=== PATIENT | male | born 1970 | race Two or more races ===

== ENCOUNTER 2016-12-20 14:08 | Emergency (ER) | payer OTHER ==
[2016-12-20 14:15] VITALS: BP 107/66
[2016-12-20] MEDS ORDERED: Rabies Immune Globulin 10 ML* 150 UNIT/ML VIAL IM ONE (14:19)
[2016-12-20] MEDS ORDERED: Rabies Vaccine, PCEC INJ* 1 ml IM ONE (14:19)
[2016-12-20] MEDS ORDERED: Tetan/Diph/Pertus SYR(Tdap)* 0.5 ML SYR(BOOSTRIX) use SYR IM ONE (14:31)
[2016-12-20] MEDS ORDERED: Rabies Immune Globulin 2 ML* 150 UNITS/ML VIAL IM ONE (14:33)
--- NOTE | 2016-12-20 14:39 | UC ---
Bite Injury/Animal HPI - HPI Summary HPI Summary: Had bat in house yesterday while sleeping, here for rabies prophylaxis per [facility]. Not sure when last tetanus shot was, thinks it has been a long time. No known bite wound. - History of Current Complaint Chief Complaint: UCGeneralIllness Stated Complaint: RABIES VACCINE Time Seen by Provider: 12/20/16 14:17 Hx Obtained From: Patient Severity Currently: None Onset/Duration: Sudden Onset Type of Bite: Wild Animal Has Animal Been Immunized?: No Aggravating Factor(s): Nothing Alleviating Factor(s): Nothing Associated Signs And Symptoms: Positive: Negative Hx of Bite: Unprovoked Animal Available for Observation: No Animal Control Notified: Yes - Allergies/Home Medications Allergies/Adverse Reactions: Allergies Allergy/AdvReac Type Severity Reaction Status Date / Time Codeine AdvReac Severe migraine Verified 12/20/16 14:15 PMH/Surg Hx/FS Hx/Imm Hx Previously Healthy: Yes - Surgical History Surgical History: None Surgery Procedure, Year, and Place: R SHOULDER SURGERY 1989 ,2004 LEFT SHOULDER - Family History Known Family History: Negative: Blood Disorder - Social History Lives: With Family Alcohol Use: Rare Substance Use Type: None Smoking Status (MU): Never Smoked Tobacco Review of Systems Constitutional: Negative Skin: Negative Eyes: Negative ENT: Negative Respiratory: Negative Cardiovascular: Negative Gastrointestinal: Negative Genitourinary: Negative Motor: Negative Neurovascular: Negative Musculoskeletal: Negative Neurological: Negative Psychological: Negative All Other Systems Reviewed And Are Negative: Yes Physical Exam Triage Information Reviewed: Yes Appearance: Well-Appearing, No Pain Distress, Well-Nourished Vital Signs: Initial Vital Signs Temp 97.6 F 12/20/16 14:10 Pulse 75 12/20/16 14:10 Resp 16 12/20/16 14:10 BP 107/66 12/20/16 14:10 Pulse Ox 100 12/20/16 14:10 Vital Signs Reviewed: Yes Eye Exam: Normal Eyes: Positive: Conjunctiva Clear ENT Exam: Normal ENT: Positive: Normal ENT inspection, Hearing grossly normal, Pharynx normal, TMs normal Dental Exam: Normal Respiratory Exam: Normal Respiratory: Positive: Chest non-tender, Lungs clear, Normal breath sounds, No respiratory distress, No accessory muscle use Cardiovascular Exam: Normal Cardiovascular: Positive: RRR, No Murmur Musculoskeletal Exam: Normal Musculoskeletal: Positive: Strength Intact, ROM Intact, No Edema Neurological Exam: Normal Neurological: Positive: Alert Psychological Exam: Normal Skin Exam: Normal Bite Injury Course/Dx - Differential Dx/Diagnosis Provider Diagnoses: rabies exposure. rabies prophylaxis Discharge - Discharge Plan Condition: Stable Disposition: HOME Patient Education Materials: Rabies Vaccine (ED), Rabies Immune Globulin (By injection) Referrals: Leobardo Vasquez MD [Primary Care Provider] - Additional Instructions: Please follow up with the [facility] for further rabies immunization.
== END 2016-12-20 15:38 | disposition home or self-care (01) ==
LOC: UCEAST 14:08
DX: Z20.3 Contact with and (suspected) exposure to rabies (principal); Z23 Encounter for immunization; Z88.5 Allergy status to narcotic agent
CPT/HCPCS: 90375; 90471; 90472; 90675; 90715; 96372; 99211; G0463

== ENCOUNTER 2016-12-21 15:21 | Emergency (ER) | payer OTHER ==
[2016-12-21 18:13] LABS: Hematocrit 41 % (42-52); Hemoglobin 14.2 g/dl (14.0-18.0); Mean Corpuscular HGB Conc 35 g/dl (31-36); Mean Corpuscular Hemoglobin 31 pg (27-31); Mean Corpuscular Volume 88 fL (80-94); Mean Platelet Volume 7 um3 (7.4-10.4); Red Blood Count 4.65 10^6/ul (4.0-5.4); Red Cell Distribution Width 13 % (10.5-15); White Blood Count 5.6 10^3/ul (3.5-10.8)
[2016-12-21 18:23] LABS: Albumin 4.6 g/dL (3.2-5.2); C Reactive Protein 1.04 mg/L (< 5.00); Calcium 9.5 mg/dL (8.6-10.3); EGFR African American 103.5 (>60); EGFR Non-African American 80.4 (>60); Globulin 2.3 g/dL (2-4); Total Bilirubin 0.6 mg/dL (0.2-1.0); Total Protein 6.9 g/dL (6.4-8.9)
[2016-12-21] MEDS ORDERED: NS 0.9% 1000 ML* 1,000 ML IV ONE (19:05)
[2016-12-21] MEDS ORDERED: Ondansetron INJ* 2 MG/ML VIAL IV ONE (19:05)
[2016-12-21] MEDS ORDERED: Morphine INJ* 4 MG/ML 1 ML SYRINGE IV ONE (19:05)
--- NOTE | 2016-12-21 20:42 | RAD ---
HISTORY: Right upper quadrant pain. COMPARISONS: CT abdomen pelvis dated April 04, 2010 TECHNIQUE: Multiple transverse and longitudinal ultrasound images were obtained of the right upper quadrant. FINDINGS: LIVER: The liver is normal in dimensions and echogenicity. Normal hepatic and portal venous blood flow is duplicated with color flow imaging. There is no gross intrahepatic biliary duct dilatation. GALLBLADDER AND EXTRAHEPATIC BILIARY DUCT: The gallbladder is normal in appearance without intraluminal stones or other soft tissue masses. There is no pericholecystic fluid or gallbladder wall thickening. The common bile duct measures a maximum diameter of 2 mm diameter. PANCREAS: The portions of the pancreas not obscured by bowel gas are normal in appearance. RIGHT KIDNEY: The right kidney is normal in size, morphology and echogenicity. AORTA AND IVC: The visualized portions are normal in appearance and not pathologically dilated. IMPRESSION: Normal ultrasound of the right upper quadrant.
[2016-12-21] MEDS ORDERED: Al Hydrox/Mg Hydrox/Simet LIQ* 30 ML UDC PO ONE (21:08)
[2016-12-21] MEDS ORDERED: Lidocaine 2% VISCOUS* 15 ML UDC PO ONE (21:08)
[2016-12-21 21:16] LABS: Urine Bilirubin Negative (Negative); Urine Glucose Negative (Negative); Urine Nitrite Negative (Negative)
--- NOTE | 2016-12-21 21:53 | RAD ---
INDICATION: Right-sided costal pleuritic chest pain COMPARISON: None TECHNIQUE: PA and lateral views of the chest were obtained. FINDINGS: The heart and mediastinum are normal in size and contour. The lungs are grossly clear. There is no evidence of large pleural effusion. Visualized bones are normal for the patient's age. There is no radiographic evidence of free air beneath the diaphragm IMPRESSION: No radiographic evidence of acute cardiopulmonary disease.
[2016-12-21 22:43] VITALS: BP 133/60
--- NOTE | 2016-12-25 10:19 | ED ---
Luna Dickens Thomas, scribed for Jacky Gil MD on 12/21/16 at 1908 . Abdominal Pain/Male - HPI Summary HPI Summary: The pt is a 46 y/o M presenting to the ED c/o RUQ abd pain that began three days ago. The pain is constant and described as 6/10 in severity. The pain is worsened significantly with deep breaths. The pt denies that the pain worsens when he eats food. Pt denies SOB, dizziness, lightheadedness, and loose stool. PMHx: hypothyroidism, chronic back pain, currently under treatment for rabies ( no reported bite). SHx: no smoking, no alcohol use in 12 years. - History of Current Complaint Chief Complaint: EDAbdPain Stated Complaint: RT SIDE RIB PAIN Time Seen by Provider: 12/21/16 17:31 Hx Obtained From: Patient Onset/Duration: Lasting Days - 3 days, Still Present Timing: Constant Pain Intensity: 6 Pain Scale Used: 0-10 Numeric Location: Discrete At: RUQ Aggravating Factor(s): Deep Breaths Alleviating Factor(s): Other: - NEG: NOT aggravated by food Associated Signs And Symptoms: Positive: Other - NEG: SOB, dizziness, lightheadedness, loose stool - Allergies/Home Medications Allergies/Adverse Reactions: Allergies Allergy/AdvReac Type Severity Reaction Status Date / Time Codeine AdvReac Severe migraine Verified 12/20/16 14:15 PMH/Surg Hx/FS Hx/Imm Hx Previously Healthy: No Endocrine/Hematology History: Reports: Other Endocrine/Hematological Disorders - Hx hypothyroidism Cardiovascular History: Denies: Hx Pacemaker/ICD Musculoskeletal History: Reports: Other Musculoskeletal History - Hx chronic back pain Sensory History: Denies: Hx Hearing Aid Psychiatric History: Denies: Hx Panic Disorder - Surgical History Surgery Procedure, Year, and Place: R SHOULDER SURGERY 1989 ,2004 LEFT SHOULDER - Immunization History Date of Tetanus Vaccine: up to date Date of Influenza Vaccine: up to date Infectious Disease History: Yes - currently under treatment fo rabies Infectious Disease History: Denies: Traveled Outside the [place] in Last 30 Days - Family History Known Family History: Negative: Blood Disorder - Social History Alcohol Use: None Substance Use Type: Reports: None Smoking Status (MU): Former Smoker Review of Systems Constitutional: Negative Negative: Fever, Chills Eyes: Negative Negative: Erythema - eyes ENT: Negative Negative: Sore Throat Cardiovascular: Negative Negative: Chest Pain Respiratory: Negative Negative: Shortness Of Breath Positive: Abdominal Pain - RUQ abd pain that began 3 days ago, worsened with deep breaths, Other - NEG: loose stool. Negative: Vomiting, Nausea Genitourinary: Negative Negative: dysuria, hematuria Musculoskeletal: Negative Negative: Myalgia, Edema - leg Skin: Negative Negative: Rash Neurological: Negative, Other - NEG: dizziness, lightheadedness Psychological: Normal All Other Systems Reviewed And Are Negative: Yes Physical Exam - Summary Physical Exam Summary: Constitutional: Well-developed, Well-nourished, Alert. (-) Distressed Skin: Warm, Dry HENT: Normocephalic; Atraumatic Eyes: Conjunctiva normal Neck: Musculoskeletal ROM normal neck. (-) JVD, (-) Stridor, (-) Tracheal deviation Cardio: Rhythm regular, rate normal, Heart sounds normal; Intact distal pulses; The pedal pulses are 2+ and symmetric. Radial pulses are 2+ and symmetric. (-) Murmur Pulmonary/Chest wall: Effort normal. (-) Respiratory distress, (-) Wheezes, (-) Rales Abd: RUQ and epigastric tenderness. Soft, (-) Distension, (-) Guarding, (-) Rebound Musculoskeletal: (-) Edema Lymph: (-) Cervical adenopathy Neuro: Alert, Oriented x3 Psych: Mood and affect Normal Triage Information Reviewed: Yes Vital Signs On Initial Exam: Initial Vitals Temp Pulse Resp BP Pulse Ox 97.9 F 80 20 119/85 100 12/21/16 15:28 12/21/16 15:28 12/21/16 15:28 12/21/16 15:28 12/21/16 15:28 Vital Signs Reviewed: Yes - [place] Coma Scale Coma Scale Total: 15 Diagnostics - Vital Signs Vital Signs Temp Pulse Resp BP Pulse Ox 12/21/16 17:34 97.4 F 66 16 113/74 100 12/21/16 17:13 96.9 F 84 20 121/73 100 12/21/16 15:28 97.9 F 80 20 119/85 100 - Laboratory Lab Results: Lab Results 12/21/16 12/21/16 12/21/16 Range/Units 18:00 18:00 18:00 WBC 5.6 (3.5-10.8) 10^3/ul RBC 4.65 (4.0-5.4) 10^6/ul Hgb 14.2 (14.0-18.0) g/dl Hct 41 L (42-52) % MCV 88 (80-94) fL MCH 31 (27-31) pg MCHC 35 (31-36) g/dl RDW 13 (10.5-15) % Plt Count 298 (150-450) 10^3/ul MPV 7 L (7.4-10.4) um3 Neut % (Auto) 70.8 (38-83) % Lymph % (Auto) 16.5 L (25-47) % [place] % (Auto) 8.8 (1-9) % Eos % (Auto) 2.9 (0-6) % Baso % (Auto) 1.0 (0-2) % Absolute Neuts (auto) 4.0 (1.5-7.7) 10^3/ul Absolute Lymphs (auto) 0.9 L (1.0-4.8) 10^3/ul Absolute Monos (auto) 0.5 (0-0.8) 10^3/ul Absolute Eos (auto) 0.2 (0-0.6) 10^3/ul Absolute Basos (auto) 0.1 (0-0.2) 10^3/ul Absolute Nucleated RBC 0 10^3/ul Nucleated RBC % 0 Sodium 136 (133-145) mmol/L Potassium 4.0 (3.5-5.0) mmol/L Chloride 102 (101-111) mmol/L Carbon Dioxide 30 (22-32) mmol/L Anion Gap 4 (2-11) mmol/L BUN 14 (6-24) mg/dL Creatinine 1.00 (0.67-1.17) mg/dL Est GFR ( Amer) 103.5 (>60) Est GFR (Non-Af Amer) 80.4 (>60) BUN/Creatinine Ratio 14.0 (8-20) Glucose 105 H (70-100) mg/dL Lactic Acid 0.7 (0.5-2.0) mmol/L Calcium 9.5 (8.6-10.3) mg/dL Total Bilirubin 0.60 (0.2-1.0) mg/dL AST 15 (13-39) U/L ALT 14 (7-52) U/L Alkaline Phosphatase 37 (34-104) U/L C-Reactive Protein 1.04 (< 5.00) mg/L Total Protein 6.9 (6.4-8.9) g/dL Albumin 4.6 (3.2-5.2) g/dL Globulin 2.3 (2-4) g/dL Albumin/Globulin Ratio 2.0 (1-3) Lipase 19 (11.0-82.0) U/L Result Diagrams: 12/21/16 18:00 12/21/16 18:00 Lab Statement: Any lab studies that have been ordered have been reviewed, and results considered in the medical decision making process. - Radiology CXR Xray Interpretation: No Acute Changes - CXR shows no evidence of acute cardiopulmonary disease. Radiology Interpretation Completed By: Radiologist - Additional Comments Diagnostic Additional Comments: US Abdo. Interpreted by radiologist. Impression: normal US of the RUQ Re-Evaluation - Re-Evaluation First Eval Re-Evaluation Time: 22:15 Change: Unchanged Abdominal Pain Fem Course/Dx - Course Course Of Treatment: In the ED course the pt was given Maalox, Lidocaine, Morphine, IV fluids, and Zofran. Assessment/Plan: The pt is a 46 y/o M presenting to the ED c/o RUQ abd pain that began three days ago. The pain is constant and described as 6/10 in severity. The pain is worsened significantly with deep breaths. The pt denies that the pain worsens when he eats food. Pt denies SOB, dizziness, lightheadedness, and loose stool. PMHx: hypothyroidism, chronic back pain, currently under treatment for rabies (no reported bite). SHx: no smoking, no alcohol use in 12 years. In the ED course the pt was given Maalox, Lidocaine, Morphine, IV fluids, and Zofran. A CXR showed no evidence of acute cardiopulmonary disease. An US Abdomen is a normal US of the RUQ. Bloodwork shows 41 Hct, 7 MPV, Lymph % 16.5, Absolute lymphs 0.9, glucose 105. UA was negative for abnormalities. The D-dimer negative was negative and there is no evidence for PE. The pt is diagnosed with subcostal pain and RUQ pain. The pt is given information on these diagnoses and instructed to return with worsening or new symptoms. The pt is agreeable to this plan. - Diagnoses Provider Diagnoses: Subcostal pain, RUQ pain Discharge - Discharge Plan Condition: Stable Disposition: HOME Prescriptions: Esomeprazole Magnesium [Nexium] 40 mg PO DAILY #14 gra Patient Education Materials: Abdominal Pain (ED) Referrals: Leobardo Vasquez MD [Primary Care Provider] - 3 Days Additional Instructions: RETURN TO THE EMERGENCY DEPARTMENT FOR NEW OR WORSENING SYMPTOMS. The documentation as recorded by the Luna gomez Thomas accurately reflects the service I personally performed and the decisions made by Jeffery barahona Jerry, MD.
== END 2016-12-21 22:42 | disposition home or self-care (01) ==
LOC: ED 15:21
DX: R10.11 Right upper quadrant pain (principal); R52 Pain, unspecified; Z87.891 Personal history of nicotine dependence
CPT/HCPCS: 36415; 71020; 76705; 80053; 81003; 83605; 83690; 85025; 85379; 86140; 96374; 96375; 99284; A9270-GY; J2270; J2405

== ENCOUNTER 2021-09-01 20:49 | Inpatient (IN) ==
[2021-09-02 00:33] LABS: ABS Lymphocytes 0.3 10^3/ul (1.0-4.8); ABS Monocytes 0.9 10^3/ul (0-0.8); ABS Neutrophils 10.1 10^3/ul (1.5-7.7); Hematocrit 37 % (42-52); Hemoglobin 12.8 g/dL (14.0-18.0); Lymphocyte % 2.4 %; Mean Corpuscular HGB Conc 35 g/dL (31-36); Mean Corpuscular Hemoglobin 31 pg (27-31); Mean Corpuscular Volume 88 fL (80-94); Mean Platelet Volume 7.1 fL (7.4-10.4); Nucleated Red Blood Cells % 0.1; Platelet Count 293 10^3/uL (150-450); Red Blood Count 4.19 10^6 /uL (4.18-5.48); Red Cell Distribution Width 13 % (10-15); White Blood Count 11.3 10^3/uL (3.5-10.8)
[2021-09-02 00:51] LABS: Urine Appearance Clear; Urine Bilirubin Negative (Negative); Urine Blood Negative (Negative); Urine Color Amber; Urine Glucose Negative (Negative); Urine Ketones Negative (Negative); Urine Nitrite Negative (Negative); Urine Protein Negative (Negative); Urine Specific Gravity 1.021 (1.002-1.030); Urine Urobilinogen Negative (Negative)
[2021-09-02 00:57] LABS: Albumin 4.3 g/dL (3.2-5.2); Albumin/Globulin Ratio 2.3 (1-3); C Reactive Protein 27.2 mg/L (<8.01); Globulin 1.9 g/dL (2-4); Magnesium 1.8 mg/dL (1.9-2.7); Potassium 4.4 mmol/L (3.5-5.0); Total Bilirubin 0.7 mg/dL (0.2-1.0); Total Protein 6.2 g/dL (6.4-8.9)
[2021-09-02] MEDS ORDERED: Ondansetron 4 mg VIAL 2 MG/ML 2 ml VIAL IV ONE (01:03)
[2021-09-02] MEDS ORDERED: Acetaminophen IV 1 GM/100ML 100 ML IV ONE ×2 (01:04→08:47)
[2021-09-02] MEDS ORDERED: Lactated Ringers 1000 ml BAG 1,000 ML IV ONE ×2 (01:07→05:36)
[2021-09-02] MEDS ORDERED: Iohexol 300 (CONTRAST) 10 ML SDV IV ONE (01:41)
[2021-09-02] MEDS ORDERED: Piperacillin/Tazobac ADVAN 3.375 GM in NS 0.9% 100 ml BAG 100 ML IV ONE (05:36)
[2021-09-02] MEDS ORDERED: Morphine 4 MG/ML VIAL (1 ml) IV ONE (06:00)
[2021-09-02] MEDS ORDERED: Zosyn per Pharmacy NOTE FOLLOW UP SCH ×2 (06:00→10:00)
[2021-09-02] MEDS ORDERED: fentaNYL 100 mcg/2 ml 50 MCG/ML VIAL IV SLOW PU ONE (06:28)
[2021-09-02] MEDS ORDERED: HYDROmorphone 1 MG/1 ML SYRINGE IV ONE (07:29)
[2021-09-02] MEDS ORDERED: ZOSYN 3.375 GM Q8H per EXTENDED INFUSION IV ONE (10:00)
[2021-09-02] MEDS: Ondansetron 4 mg VIAL 2 MG/ML 2 ml VIAL IV PRN ×2 (12:49→23:28)
[2021-09-02 12:57] LABS: HIV 4th Generation Nonreactive (Nonreactive)
[2021-09-02] MEDS: ZOSYN 3.375 GM Q8H per EXTENDED INFUSION IV SCH ×2 (13:27→18:36)
[2021-09-02] MEDS ORDERED: NS 0.9% 1000 ml BAG 1,000 ML IV ONE (13:42)
[2021-09-02] MEDS: Lactated Ringers 1000 ml BAG 1,000 ML IV SCH (17:04)
[2021-09-02] MEDS: Morphine 4 MG/ML VIAL (1 ml) IV PRN ×2 (18:35→23:28)
[2021-09-02 18:53] LABS: TSH Ultra Thyroid Stim Horm 3.74 mcIU/mL (0.34-5.60)
[2021-09-02] MEDS: Acetaminophen IV 1 GM/100ML 100 ML IV PRN (20:24)
[2021-09-03] MEDS: ZOSYN 3.375 GM Q8H per EXTENDED INFUSION IV SCH ×3 (03:51→17:36)
[2021-09-03] MEDS: Lactated Ringers 1000 ml BAG 1,000 ML IV SCH ×2 (03:55→17:48)
[2021-09-03] MEDS: Morphine 4 MG/ML VIAL (1 ml) IV PRN ×5 (04:00→22:55)
[2021-09-03] MEDS: Acetaminophen IV 1 GM/100ML 100 ML IV PRN ×3 (05:35→20:57)
[2021-09-03 07:46] LABS: ABS Basophils 0.1 10^3/ul (0-0.2); ABS Eosinophils 0.1 10^3/ul (0-0.6); ABS Lymphocytes 0.8 10^3/ul (1.0-4.8); ABS Monocytes 0.7 10^3/ul (0-0.8); ABS Neutrophils 5.5 10^3/ul (1.5-7.7); Hematocrit 31 % (42-52); Hemoglobin 10.6 g/dL (14.0-18.0); Lymphocyte % 11.2 %; Mean Corpuscular HGB Conc 35 g/dL (31-36); Mean Corpuscular Hemoglobin 31 pg (27-31); Mean Corpuscular Volume 90 fL (80-94); Mean Platelet Volume 7.5 fL (7.4-10.4); Platelet Count 213 10^3/uL (150-450); Red Blood Count 3.41 10^6 /uL (4.18-5.48); Red Cell Distribution Width 13 % (10-15); White Blood Count 7.1 10^3/uL (3.5-10.8)
[2021-09-03 08:15] LABS: C Reactive Protein 156.93 mg/L (<8.01); Potassium 4.2 mmol/L (3.5-5.0); eGFR CKD-EPI 111.6 (>60)
[2021-09-04] MEDS: ZOSYN 3.375 GM Q8H per EXTENDED INFUSION IV SCH ×3 (01:41→17:01)
[2021-09-04] MEDS: Morphine 4 MG/ML VIAL (1 ml) IV PRN (02:54)
[2021-09-04] MEDS: Lactated Ringers 1000 ml BAG 1,000 ML IV SCH (02:58)
[2021-09-04] MEDS ORDERED: HYDROmorphone 0.5 MG/0.5 ML SYRINGE ONE (08:07)
[2021-09-04] MEDS: Acetaminophen IV 1 GM/100ML 100 ML IV PRN ×2 (08:11→14:15)
[2021-09-04] MEDS: Ondansetron 4 mg VIAL 2 MG/ML 2 ml VIAL IV PRN (08:12)
[2021-09-04] MEDS ORDERED: PEG 3000 GI LAVAGE 1 GALLON PO ONE ×2 (09:22→17:00)
[2021-09-04] MEDS: HYDROmorphone 0.5 MG/0.5 ML SYRINGE IV SLOW PU PRN ×3 (12:13→20:49)
[2021-09-05] MEDS: ZOSYN 3.375 GM Q8H per EXTENDED INFUSION IV SCH ×3 (01:15→18:28)
[2021-09-05] MEDS: HYDROmorphone 0.5 MG/0.5 ML SYRINGE IV SLOW PU PRN ×6 (01:15→22:19)
[2021-09-05 06:09] LABS: Hematocrit 34 % (42-52); Hemoglobin 11.6 g/dL (14.0-18.0); Mean Corpuscular HGB Conc 34 g/dL (31-36); Mean Corpuscular Hemoglobin 31 pg (27-31); Mean Corpuscular Volume 90 fL (80-94); Red Blood Count 3.77 10^6 /uL (4.18-5.48); Red Cell Distribution Width 13 % (10-15)
[2021-09-05 06:14] LABS: CO2 Carbon Dioxide 23 mmol/L (22-32); Calcium 8.4 mg/dL (8.6-10.3); Chloride 106 mmol/L (101-111); Sodium 141 mmol/L (135-145)
[2021-09-05 06:20] LABS: Blood Urea Nitrogen 10 mg/dL (6-24); C Reactive Protein 60.53 mg/L (<8.01); Glucose 68 mg/dL (70-100); eGFR CKD-EPI 114.6 (>60)
[2021-09-05 06:22] LABS: Anion Gap 12 mmol/L (2-11)
[2021-09-05 07:37] LABS: ABS Eosinophils 0.2 10^3/ul (0-0.6); ABS Monocytes 0.6 10^3/ul (0-0.8); ABS Neutrophils 4.3 10^3/ul (1.5-7.7); Eosinophil % 3.3 %; Lymphocyte % 16.5 %; Mean Platelet Volume 8.6 fL (7.4-10.4); Platelet Count 222 10^3/uL (150-450); White Blood Count 6.2 10^3/uL (3.5-10.8)
[2021-09-05] MEDS ORDERED: PEG 3000 GI LAVAGE 1 GALLON PO ONE (08:00)
[2021-09-05] MEDS: Ondansetron 4 mg VIAL 2 MG/ML 2 ml VIAL IV PRN (08:58)
[2021-09-05] MEDS ORDERED: Midazolam 10 mg/10 ml VIAL 1 mg/ml 10 ml VIAL (10 mg) ONE (14:36)
[2021-09-05] MEDS ORDERED: fentaNYL 100 mcg/2 ml 50 MCG/ML VIAL ONE (14:36)
[2021-09-05] MEDS ORDERED: NS 0.9% 100 ml BAG 100 ML ONE (18:09)
[2021-09-05] MEDS: Acetaminophen IV 1 GM/100ML 100 ML IV PRN (21:35)
[2021-09-06] MEDS: ZOSYN 3.375 GM Q8H per EXTENDED INFUSION IV SCH ×3 (02:29→18:12)
[2021-09-06] MEDS: HYDROmorphone 0.5 MG/0.5 ML SYRINGE IV SLOW PU PRN ×4 (02:30→20:38)
[2021-09-06] MEDS ORDERED: Senna TAB 8.6 mg TAB PO PRN (05:18)
[2021-09-06] MEDS ORDERED: Iohexol 350 (CONTRAST) 500 ML MDV IV ONE (11:02)
[2021-09-07] MEDS: ZOSYN 3.375 GM Q8H per EXTENDED INFUSION IV SCH ×2 (03:02→09:24)
[2021-09-07 16:35] VITALS: BP 107/72
== END 2021-09-07 17:25 | disposition home or self-care (01) | DRG 246 ==
LOC: ED 20:49 → EDHOLD 09-02 10:40 → SSU 09-02 15:47
PROVIDERS: ADMIT Hospitalist; ATTEND Hospitalist